=== PATIENT | female | born 1990 | race Caucasian/White ===

== ENCOUNTER 2016-10-14 10:11 | Emergency (ER) | payer MEDICAID ==
[2016-10-14 10:31] VITALS: BP 140/94
[2016-10-14] MEDS ORDERED: Ketorolac 30 MG/ML SDV IVPUSH ONE (11:28)
[2016-10-14] MEDS ORDERED: Sodium Chloride 0.9% 1,000 ML IV ONE ×2 (11:28→14:09)
[2016-10-14] MEDS ORDERED: Ondansetron 4 MG/2 ML SDV IVPUSH ONE ×2 (11:28→13:40)
[2016-10-14] MEDS ORDERED: Sodium Chloride 0.9% 10 ML Syringe FLUSH PRN (11:29)
--- NOTE | 2016-10-14 11:45 | EDM.PDOC ---
ED HISTORY OF PRESENT ILLNESS - General Chief Complaint: Respiratory Problem Stated Complaint: FLU SX Time Seen by Provider: 10/14/16 11:21 Source of Information: Reports: Patient History Limitations: Reports: No limitations - History of Present Illness INITIAL COMMENTS - FREE TEXT/NARRATIVE: Patient presents for evaluation of cough and flulike symptoms. She reports that her symptoms have been present since . She was seen at the [place] [facility] on . She had a chest x-ray and had 2 tests done. She says that these were negative but she is unsure what tests these were. She reports that she was diagnosed with a common cold. She states that her symptoms are becoming worse. She reports cough, nausea, vomiting, headaches, body aches, constipation, fatigue and malaise. She just reports a decreased appetite. She states she does have a 1-4 episodes of vomiting per day. She denies any fevers, earaches, sore throat, diarrhea, abdominal pain or sinus pain. Patient reports that she hasn't had anything to eat or drink in days. This is due to her nausea and decreased appetite. Patient denies any recent travel. She denies any ill contacts. - Related Data Allergies/ADRs: Allergies Allergy/AdvReac Type Severity Reaction Status Date / Time chlorhexidine Allergy Rash Verified 07/10/16 09:11 ciprofloxacin [From Cipro] Allergy Blisters Verified 07/09/16 13:15 ciprofloxacin HCl Allergy Blisters Verified 07/09/16 13:15 [From Cipro] Home Meds: Home Meds Mirtazapine [Remeron] 45 mg PO BEDTIME 01/16/16 [History] Pregabalin [Lyrica] 100 mg PO TID 06/03/16 [History] hydrOXYzine Pamoate [Hydroxyzine Pamoate] 1 tab PO TID PRN 06/03/16 [History] ALPRAZolam [Alprazolam ER] 0.5 mg PO TID 10/14/16 [History] Azithromycin [Zithromax] 250 mg PO ONETIME #6 tablet 10/14/16 [Rx] Ondansetron [Zofran ODT] 4 mg PO Q8H #15 tab.dis 10/14/16 [Rx] Past Medical History HEENT History: Reports: Impaired vision Other HEENT History: glasses Cardiovascular History: Reports: Other (see below) Other Cardiovascular History: palpitations Gastrointestinal History: Reports: Irritable bowel syndrome Other Gastrointestinal History: nausea and vomiting 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: Reports: , Other (see below) Other OB/BYN History: pelvic congestion syndrome, dysmenorrhea, anovulation, bacterial vaginitis, dyspareunia, ovarian cyst, pelvic adhesions, exploratory laparotomy Musculoskeletal History: Reports: Back pain, chronic, Fibromyalgia Neurological History: Reports: Other (see below) Other Neuro History: numbness/tingling to foot Psychiatric History: Reports: Anxiety, Bipolar, Depression, Other (see below) Other Psychiatric History: opiate addiction Endocrine/Metabolic History: Reports: Other (see below) Other Endocrine/Metabolic History: telgen effluvium - Infectious Disease History Infectious Disease History: Reports: Chicken pox - Past Surgical History Female Surgical History: Reports: section Social & Family History - Family History Family Medical History: Noncontributory - Tobacco Use Smoking Status *Q: Current Every Day Smoker Years of Tobacco use: 10 Packs/Tins Daily: 1 Second Hand Smoke Exposure: Yes - Caffeine Use Caffeine Use: Reports: Coffee, Energy drinks, Soda, Tea - Alcohol Use Days Per Week of Alcohol Use: 0 Number of Drinks Per Day: 0 Total Drinks Per Week: 0 - Recreational Drug Use Recreational Drug Use: No Drug Use in Last 12 Months: Yes Recreational Drug Type: Reports: Marijuana/Hashish Recreational Drug Use Frequency: Daily ED ROS GENERAL - Review of Systems Review Of Systems: See Below Constitutional: Reports: fever, chills, malaise, decreased appetite, other ( reports body aches) HEENT: Denies: Ear pain, Sinus problem, Throat pain Respiratory: Reports: Cough GI/Abdominal: Reports: Constipation, Nausea, Vomiting. Denies: Abdominal pain, Diarrhea : Reports: urgency. Denies: dysuria, hematuria Neurological: Reports: Headache ED EXAM, GENERAL - Physical Exam Exam: See Below Exam Limited By: No limitations General Appearance: alert, WD/WN, no apparent distress Ears: normal external exam, normal canal, hearing grossly normal, normal TMs Nose: normal inspection Throat/Mouth: Normal inspection, Normal lips, Normal teeth, Normal gums, Normal oropharynx, Normal voice, No airway compromise Neck: normal inspection Respiratory/Chest: no respiratory distress, lungs clear, normal breath sounds Cardiovascular: normal peripheral pulses, regular rate, rhythm, no murmur GI/Abdominal: normal bowel sounds, soft, non tender Neurological: alert, oriented, normal cognition Psychiatric: normal affect, normal mood Skin Exam: Normal color, Increased warmth Course - Vital Signs Last Recorded V/S: Last Vital Signs Temp 35.9 C 10/14/16 13:50 Pulse 79 10/14/16 10:26 Resp 16 10/14/16 10:26 BP 140/94 H 10/14/16 10:26 Pulse Ox 92 L 10/14/16 10:26 - Orders/Labs/Meds Labs: Laboratory Tests 10/14/16 10/14/16 10/14/16 Range/Units 11:45 11:45 14:00 WBC 7.31 (3.98-10.04) K/mm3 RBC 5.45 H (3.98-5.22) M/mm3 Hgb 15.4 (11.2-15.7) gm/L Hct 47.1 H (34.1-44.9) % MCV 86.4 (79.4-94.8) fl MCH 28.3 (25.6-32.2) pg MCHC 32.7 (32.2-35.5) g/dl RDW Std Deviation 47.7 H (36.4-46.3) fL Plt Count 218 (182-369) K/mm3 MPV 10.5 (9.4-12.3) fl Neut % (Auto) 55.0 (34.0-71.1) % Lymph % (Auto) 27.5 (19.3-51.7) % [place] % (Auto) 17.0 H (4.7-12.5) % Eos % (Auto) 0 L (0.7-5.8) Baso % (Auto) 0.4 (0.1-1.2) % Neut # 4.02 (1.56-6.13) K/mm3 Lymph # 2.01 (1.18-3.74) K/mm3 [place] # 1.24 H (0.24-0.36) K/mm3 Eos # 0.00 L (0.04-0.36) K/mm3 Baso # 0.03 (0.01-0.08) K/mm3 Sodium 144 (136-145) mEq/L Potassium 3.8 (3.5-5.1) mEq/L Chloride 105 (98-107) mEq/L Carbon Dioxide 26 (21-32) mEq/L Anion Gap 16.8 H (5-15) BUN 11 (7-18) mg/dL Creatinine 0.8 (0.55-1.02) mg/dL Est Cr Clr Drug Dosing 91.21 mL/min Estimated GFR (MDRD) > 60 (>60) mL/min BUN/Creatinine Ratio 13.8 L (14-18) Glucose 99 (74-106) mg/dL Calcium 9.0 (8.5-10.1) mg/dL Total Bilirubin 0.3 (0.2-1.0) mg/dL AST 20 (15-37) U/L ALT 16 (14-59) U/L Alkaline Phosphatase 105 (46-116) U/L C-Reactive Protein 7.1 H* (<1.0) mg/dL Total Protein 8.3 H (6.4-8.2) g/dl Albumin 4.1 (3.4-5.0) g/dl Globulin 4.2 gm/dL Albumin/Globulin Ratio 1.0 (1-2) Urine Color Yellow (Yellow) Urine Appearance Slt cloudy H (Clear) Urine pH 6.0 (5.0-8.0) Ur Specific [place] > or = 1.030 (1.005-1.030) Urine Protein 2+ H (Negative) Urine Glucose (UA) Negative (Negative) Urine Ketones 2+ H (Negative) Urine Occult Blood Negative (Negative) Urine Nitrite Negative (Negative) Urine Bilirubin Negative (Negative) Urine Urobilinogen 1.0 (0.2-1.0) Ur Leukocyte Esterase Negative (Negative) Urine RBC 0-5 (0-5) /hpf Urine WBC 5-10 H (0-5) /hpf Ur Squamous Epith Cells 5-10 H (0-5) /hpf Urine Bacteria Rare (FEW) /hpf Urine Mucus Many H (FEW) /hpf Meds: Medications Discontinued Medications Generic Name Dose Route Start Last Admin Trade Name Freq PRN Reason Stop Dose Admin Acetaminophen 650 mg 10/14/16 13:41 10/14/16 13:50 Tylenol PO 10/14/16 13:42 650 mg NOW ONE Administration Sodium Chloride 1,000 mls @ 999 mls/hr 10/14/16 11:28 10/14/16 11:52 Normal Saline IV 10/14/16 12:28 999 mls/hr ONETIME ONE Administration Sodium Chloride 1,000 mls @ 999 mls/hr 10/14/16 14:09 10/14/16 14:16 Normal Saline IV 10/14/16 15:09 999 mls/hr ONETIME ONE Administration Ketorolac Tromethamine 30 mg 10/14/16 11:28 10/14/16 11:57 Toradol IVPUSH 10/14/16 11:29 30 mg ONETIME ONE Administration Metoclopramide HCl 5 mg 10/14/16 15:01 10/14/16 15:11 Reglan IVPUSH 10/14/16 15:02 5 mg ONETIME ONE Administration Ondansetron HCl 4 mg 10/14/16 11:28 10/14/16 11:54 Zofran IVPUSH 10/14/16 11:29 4 mg ONETIME ONE Administration Ondansetron HCl 4 mg 10/14/16 13:40 10/14/16 13:48 Zofran IVPUSH 10/14/16 13:41 4 mg ONETIME ONE Administration Sodium Chloride 10 ml 10/14/16 11:29 10/14/16 11:56 Saline Flush FLUSH 10 ml ASDIRECTED PRN Administration Keep Vein Open - Radiology Interpretation Free Text/Narrative:: chest xray shows no acute intrathoracic process - Re-Assessments/Exams Free Text/Narrative Re-Assessment/Exam: 10/14/16 15:10 Labs have returned. WBC is 7.31, hgb is 15.4 and plts are 218 Sodium is 144, potassium is 3.8 and chloride is 105. Anion gap is 16.8 CRP is 7.1 UA has 2+ protein, 3+ ketones and rare bateria. Negative for nitrites and leuks. Patient feels slightly improved. She has received two fluid boluses, reglan, toradol and zofran x2 doses. I feel she will do well at home. Mom would like admission. I discussed with her , while the patient is ill she does not require admission and should be able to overcome her illness at home. Discharge instructions as documented. Departure - Departure Time of Disposition: 15:15 Disposition: Home, Self-Care 01 Condition: fair Clinical Impression: Bronchitis Prescriptions: Azithromycin [Zithromax] 250 mg PO ONETIME #6 tablet Ondansetron [Zofran ODT] 4 mg PO Q8H #15 tab.dis Instructions: Acute Bronchitis, [id number] Referrals: Rashawn Eldridge PA-C [Primary Care Provider] - Forms: ED Department Discharge Additional Instructions: A prescription for azithromycin and Zofran has been Escribed [facility]. Take the azithromycin as prescribed one tablet twice a day for the first day then one tablet once daily for an additional 4 days for 5 days medication total. may take the Zofran one tab sublingual every 6 hours as needed for nausea. Recommend small frequent sips of fluids. Clear liquids today and tomorrow. May advance to a bland diet Friday. Diet recommendations includes bread, rice, toast, applesauce, bananas, egg whites, etc. Follow-up with your primary care provided at the end of this week or early next week. Please return to the [facility] should her symptoms change or worsen
[2016-10-14] MEDS ORDERED: Acetaminophen 325 MG Tab PO ONE (13:41)
[2016-10-14] MEDS ORDERED: Metoclopramide 10 MG/2 ML SDV IVPUSH ONE (15:01)
--- NOTE | 2016-10-14 16:05 | CR ---
Chest: Two views of the chest were obtained. Comparison: Previous chest x-ray of 03/15/16. Heart size and mediastinum are normal. Lungs are clear. Bony structures are unremarkable for the patient's age. Impression: 1. Nothing acute is identified on two-view chest x-ray. Diagnostic code #1
== END 2016-10-14 15:20 | disposition home or self-care (01) ==
LOC: JD.ED 10:11
DX: J40 Bronchitis, not specified as acute or chronic (principal); F41.9 Anxiety disorder, unspecified; F32.9 Major depressive disorder, single episode, unspecified; Z88.1 Allergy status to other antibiotic agents; Z79.899 Other long term (current) drug therapy; F17.210 Nicotine dependence, cigarettes, uncomplicated
CPT/HCPCS: 36415; 71020; 80053; 81001; 85025; 86140; 87804; 96361; 96374; 96375; 99284; A9270; J1885; J2405; J2765; J7040; J7050